=== PATIENT | female | born 1970 | race Caucasian/White ===

== ENCOUNTER 2022-08-20 15:55 | Emergency (ER) | payer SELFPAY ==
[~2022-08-20] VITALS: Ht 154.9 cm; Wt 69.9 kg
[~2022-08-20 15:55] MED LIST: IBUP400T98 PO; PROM473S5 PO; TAM75 PO
[2022-08-20 16:05] VITALS: BP 138/85
[2022-08-20] MEDS ORDERED: HYDROcodone/APAP 5/325 MG 1 TAB TAB PO ONE (16:05)
[2022-08-20 16:28] LABS: BASOPHILS # (AUTO) 0.1 K/uL (0.00-0.22); BASOPHILS % (AUTO) 0.9 % (0.0-2.0); EOSINOPHILS # (AUTO) 0.2 K/uL (0-0.4); EOSINOPHILS % (AUTO) 1.4 % (0.0-4.0); HEMATOCRIT 40.7 % (36-48); HEMOGLOBIN 13.9 g/dL (12.0-16.0); LYMPHOCYTES # (AUTO) 2.1 K/uL (2.5-16.5); LYMPHOCYTES % (AUTO) 19.2 % (20.5-51.1); MEAN CORPUSCULAR HEMOGLOBIN 30 pg (27-31); MEAN CORPUSCULAR HGB CONC 34 g/dL (33-37); MEAN CORPUSCULAR VOLUME 86.7 fL (80-94); MONOCYTES # (AUTO) 0.7 K/uL (0.8-1.0); MONOCYTES % (AUTO) 6.7 % (1.7-9.3); NEUTROPHILS # (AUTO) 7.9 K/uL (1.8-7.7); NEUTROPHILS % (AUTO) 71.8 % (42.2-75.2); PLATELET COUNT (AUTO) 292 K/uL (140-450); RED CELL DISTRIBUTION WIDTH 13.5 % (11.6-13.7); WHITE BLOOD COUNT (AUTO) 10.9 K/uL (4.8-10.8)
[2022-08-20 16:48] LABS: ALBUMIN 3.9 g/dL (3.4-5.0); ANION GAP 8.8 (8-16); ASPARTATE AMINOTRANSFERASE 20 U/L (15-37); CARBON DIOXIDE 31.6 mmol/L (21-32); CHLORIDE 104 mmol/L (98-107); CREATININE 0.8 mg/dL (0.6-1.3); GFR ARICAN-AMERICAN 97 mL/min (>90); GLUCOSE 113 mg/dL (74-106); POTASSIUM 3.4 mmol/L (3.5-5.1); SODIUM SERUM 141 mmol/L (136-145); TOTAL BILIRUBIN 0.5 mg/dL (0.0-1.0); UREA NITROGEN, BLOOD 9 mg/dL (7-18)
[2022-08-20] MEDS ORDERED: IBUP-2213 PO (17:51)
[2022-08-20] MEDS ORDERED: ACET-9525 PO (17:51)
[2022-08-20] MEDS ORDERED: LID5T TP (17:51)
--- NOTE | 2022-08-20 17:57 | NUR ---
AMBULATED TO BED IN NO DISTRESS.
[2022-08-20] MEDS ORDERED: HYDROcodone/APAP 5/325 MG 1 TAB TAB ONE (18:08)
--- NOTE | 2022-08-20 18:10 | NUR ---
here for left shoulder pain, + tenderness, limited ROM
--- NOTE | 2022-08-20 18:15 | NUR ---
medicated for left shoulder pain as ordered.
[2022-08-20 18:25] VITALS: BP 132/76
--- NOTE | 2022-08-20 18:26 | NUR ---
SLING APPLIED TO L WRIST. + CMS
--- NOTE | 2022-08-20 18:27 | NUR ---
Patient discharged with v/s stable. Written and verbal after care instructions given and explained. Patient verbalized understanding. Ambulatory with steady gait. All questions addressed prior to discharge. Advised to follow up with PMD. arm sling in place, pain 4 /10 at discharge time
== END 2022-08-20 18:25 | disposition home or self-care (01) ==
LOC: MED 15:55
DX: M75.32 Calcific tendinitis of left shoulder (principal); Z79.899 Other long term (current) drug therapy
CPT/HCPCS: 36415; 71045; 73030; 80053; 84484; 85025; 93971; 99284; Q0092